=== PATIENT | male | born 1990 | race African-American/Black ===

== ENCOUNTER 2018-02-28 04:25 | Emergency (ER) | payer OTHER ==
[2018-02-28 04:33] VITALS: BP 137/103; PULSE 80; TEMP 97.6; BMI 41.8
[2018-02-28] MEDS ORDERED: ALBUTEROL SO4 2.5/IPRATROPIUM 0.5 INH SOL 3 ML VIAL.NEB. NEB ONE ×2 (04:39)
--- NOTE | 2018-02-28 04:39 | PDOC ---
History of Present Illness - General Chief Complaint: Asthma Stated Complaint: DIFFICULTY BREATHING Time Seen by Provider: 02/28/18 04:39 - History of Present Illness Initial Comments: 27 year old male with eczema, asthma, and FIZT presenting with acute difficulty breathing over the past few hours states that he had difficulty breathing since a few hours before presentation. States that he was trying to sleep when he suddenly became short of breath and slowly started to feel worse. He was crying in the cab ride over because he couldn't breath. He lost his home inhaler and does not have a nebulizer machine at [facility]. His sats were 96% + on RA and he was not using accessory muscles. He sounded congested but his partner at the bedside stated that he always sounded like that. He does not use his CPAP at home because it is uncomfortable. Does not smoke or drink EtOH. Never been intubated for asthma exacerbation in the past. He denies recent fevers, chills, nausea, vomiting, diarrhea, environmental exposure, sick contact, or other sick symptoms. 02/28/18 04:59 Past History - Past Medical History Allergies/Adverse Reactions: Allergies Allergy/AdvReac Type Severity Reaction Status Date / Time No Known Allergies Allergy Verified 02/28/18 04:31 Home Medications: Ambulatory Orders Albuterol Sulfate Inhaler - [Ventolin HFA Inhaler -] 1 - 2 inh PO PRN PRN #120 inhaler 02/28/18 Fluticasone Prop 0.05% Nasal [Flonase -] 1 - 2 spray NS DAILY #1 spray.pump 01/16 predniSONE [Deltasone -] 40 mg PO DAILY 5 Days #10 tablet 02/28/18 Asthma: Yes - Immunization History Immunization Up to Date: No - Suicide/Smoking/Psychosocial Hx Smoking History: Never smoked Have you smoked in the past 12 months: No If you are a former smoker, when did you quit?: 5 years ago Information on smoking cessation initiated: No Hx Alcohol Use: No Drug/Substance Use Hx: No Review of Systems - Review of Systems Constitutional: No: Chills, Diaphoresis, Fever, Loss of Appetite HEENTM: No: Blurred Vision, Recent change in vision, Nose Congestion, Throat Swelling, Mouth Swelling Respiratory: Yes: Shortness of Breath, SOB with Exertion, SOB at Rest, Wheezing. No: Cough, Stridor, Productive cough Cardiac (ROS): No: Chest Pain, Edema, Irregular Heart Rate ABD/GI: No: Constipated, Diarrhea, Nausea, Vomiting : No: Burning, Dysuria, Discharge Integumentary: No: Bruising, Lesions, Lumps Neurological: No: Headache, Numbness, Paresthesia *Physical Exam - Vital Signs Last Vital Signs Temp Pulse Resp BP Pulse Ox 97.6 F 80 20 137/103 96 02/28/18 04:31 02/28/18 04:31 02/28/18 04:31 02/28/18 04:31 02/28/18 04:31 - Physical Exam General Appearance: Yes: Nourished, Appropriately Dressed, Apparent Distress, Mild Distress HEENT: positive: EOMI, RHONDA. negative: Normal ENT Inspection (Uvula seems slightly boggy and malnpoty is a 3 but patient denies feeig throat swellign or other upper airway swelling), Normal Voice (congested sounding but at his baselien per partner) Neck: positive: Trachea midline, Normal Thyroid, Supple. negative: Tender, Rigid Respiratory/Chest: positive: Respiratory Distress (mild subjective respiratory distress). negative: Chest Tender, Lungs Clear (slight shweexing bialterally but moving air decently well), Normal Breath Sounds Cardiovascular: positive: Regular Rhythm, Regular Rate Gastrointestinal/Abdominal: positive: Normal Bowel Sounds, Flat, Soft. negative : Tender Musculoskeletal: positive: Normal Inspection. negative: Decreased Range of Motion Extremity: positive: Normal Capillary Refill, Normal Inspection, Normal Range of Motion. negative: Tender Integumentary: positive: Normal Color, Dry, Warm Neurologic: positive: Fully Oriented, Alert, Normal Mood/Affect, Normal Response , Motor Strength 5/5 Medical Decision Making - Medical Decision Making 27 year old male with PMH of eczema and asthma presenting with subjective SOB since trying to fall asleep a few hours before presentation. He was sating 96% on RA on presentation and not using accessory muscles. He had some faint bilateral lung wheezes that resolved with steroids and a dose of nebs. Will DC home with steroids x 5 days, new albuterol prescription, and some flownase prescription. 02/28/18 05:21 *DC/Admit/Observation/Transfer Diagnosis at time of Disposition: Asthma attack Qualifiers: Asthma severity: mild Asthma persistence: intermittent Qualified Code(s): J45.21 - Mild intermittent asthma with (acute) exacerbation - Discharge Dispostion Disposition: HOME Condition at time of disposition: Improved Admit: No - Prescriptions Prescriptions: Albuterol Sulfate Inhaler - [Ventolin HFA Inhaler -] 1 - 2 inh PO PRN PRN #120 inhaler PRN Reason: Wheezing Fluticasone Prop 0.05% Nasal [Flonase -] 1 - 2 spray NS DAILY #1 spray.pump predniSONE [Deltasone -] 40 mg PO DAILY 5 Days #10 tablet - Referrals Referrals: Blake Romero MD [Staff Physician] - - Patient Instructions Printed Discharge Instructions: Asthma -- Adult Additional Instructions: Please use the steroids for the next 5 days, please use your inhaler as needed, pleause use the flownase daily. Please follow up with your primary care doctor within 72 hours. If you do not have one, you can follow up with Dr. Nick Howard. Please return to the ED if you have new or worsening symptoms. - Post Discharge Activity
[2018-02-28] MEDS ORDERED: predniSONE 20 MG TABLET (UD) PO ONE (04:40)
[2018-02-28] MEDS ORDERED: predniSONE 20 MG TABLET (UD) ONE (04:52)
--- NOTE | 2018-02-28 05:03 | PDOC ---
Attending Attestation - Resident Resident Name: Michelle Hayden - ED Attending Attestation I have performed the following: I have examined & evaluated the patient, The case was reviewed & discussed with the resident, I agree w/resident's findings & plan, Exceptions are as noted - Medical Decision Making 02/28/18 05:01 27 yo M h/o asthma here wtih c/o sob wheezing. started today. unsure of usual trigger.s doeshave h/o eczema. no f/c no cough. does have chronic nasal congestion and sleep apnea. no meds prior to arrival. states he was crying earlier bc he couldnt breath. on exam biateral wheezing, normal effurt. bilat eyes conj injected. skin warm and dry. heart rrr no mrg. plan treat for asthma exacerbation, plan nebs. steroids peak flow, reassess. kristina dc home with steroids and inhaler. <Jory Rader - Last Filed: 02/28/18 05:01> - HPI HPI: 02/28/18 05:55 Patient is a 27 year old male with a significant past medical history of Asthma , eczema, FITZ, who presents to the ED with complaints of shortness of breath that began just prior to ED arrival. Patient reports sleeping when he was suddenly awaken due to Sob that he states slowly increased in intensity, prompting him to come into the ED for further evaluation. As per girlfriend, patient was crying in a cab secondary to sob. Patient reports not using an inhaler due to losing it at an unknown point in time. 500 ml on peak flow after administered nebulizer. Denies chest pains. Denies fevers, chills. Denies nausea, vomiting. Denies trauma to affected area. Denies contact with sick individuals, out of state travelling. Denies any other symptoms. Allergies: None Social history: No smoking. No alcohol. No illicit drugs. Surgical history: None PMD: None - Physicial Exam PE: 02/28/18 05:55 GENERAL: Awake, alert, and fully oriented, in no acute distress HEAD: No signs of trauma EYES: PERRLA, EOMI, sclera anicteric, conjunctiva clear ENT: Auricles normal inspection, nares patent, Moist mucosa NECK: Normal ROM, supple, no lymphadenopathy, JVD, or masses LUNGS: +Wheezing, normal effort Breath sounds equal, clear to auscultation bilaterally. No crackles HEART: Regular rate and rhythm, normal S1 and S2, no murmurs, rubs or gallops ABDOMEN: Soft, nontender, normoactive bowel sounds. No guarding, no rebound. No masses EXTREMITIES: Normal range of motion, no edema. No clubbing or cyanosis. No cords, erythema, or tenderness NEUROLOGICAL: Normal speech SKIN: Warm, Dry, normal turgor, no rashes or lesions noted. <Shiraz Richey - Last Filed: 02/28/18 05:55>
== END 2018-02-28 05:45 | disposition home or self-care (01) ==
LOC: JER 04:25
PROC: 3E0F7GC Introduction of Other Therapeutic Substance into Respiratory Tract, Via Natural or Artificial Opening (ICD-10-PCS; principal; 2018-02-28)
PROC: 3E0F7GC Introduction of Other Therapeutic Substance into Respiratory Tract, Via Natural or Artificial Opening (ICD-10-PCS; 2018-02-28)
DX: J45.21 Mild intermittent asthma with (acute) exacerbation (principal); G47.33 Obstructive sleep apnea (adult) (pediatric); L30.9 Dermatitis, unspecified
CPT/HCPCS: 94640; 99282-25